=== PATIENT | female | born 1960 | race Caucasian/White ===

== ENCOUNTER 2018-06-19 09:43 | Outpatient (CLI) | payer OTHER, SELFPAY ==
[2018-06-19 11:09] LABS: TSH 1.25 uIU/mL (0.358-3.74)
[2018-06-19 14:28] LABS: Vitamin B12 371 pg/mL (193-986)
== END 2018-06-19 10:03 ==
PROVIDERS: PCP Student in an Organized Health Care Education/Training Program; Visit Provider Nurse Practitioner Adult Health
DX: G31.84 Mild cognitive impairment of uncertain or unknown etiology (principal)
CPT/HCPCS: 36415; 82607; 84443